=== PATIENT | male | born 1955 | race Caucasian/White ===

== ENCOUNTER 2020-07-02 10:34 | Outpatient (CLI) | payer OTHER, SELFPAY | END 2020-07-02 10:35 | disposition home or self-care (01) | LOC: ANHCOVIDVC 10:34 | PROVIDERS: PCP Family Medicine | DX: Z23 Encounter for immunization (principal) | CPT/HCPCS: 0001A; 91300 ==

== ENCOUNTER 2020-07-23 10:40 | Outpatient (CLI) | payer OTHER, SELFPAY | END 2020-07-23 10:41 | disposition home or self-care (01) | LOC: ANHCOVIDVC 10:40 | PROVIDERS: PCP Family Medicine | DX: Z23 Encounter for immunization (principal) | CPT/HCPCS: 0002A; 91300 ==

== ENCOUNTER 2024-07-11 02:12 | Day surgery (SDC) | payer MEDICARE, OTHER, SELFPAY ==
[2024-06-30 09:35] VITALS: BMI 27.9
--- OUTSIDE RECORDS SUMMARY | 2024-07-11 02:15 | XMS_ITS | Clinical Summary ---
Author Organization [facility] Address [address] [place] [address] Care Team Providers Care Nurse Wound Care Name Role Phone Unavailable Primary Care Provider Unavailabl e Source Comments [facility],non-owned Affiliates and Associated Physician Practices is amultiple site organization consisting of ambulatory clinics and hospital sitesin [place], [place], [place] and [place]. This disclosure is being madepursuant to the Care Everywhere program and may not contain all information available regarding this patient. Last updated 17.[facility] Allergies No known active allergies Medications * Be aware that medications may not be up to date on this document. Alwaysverify current medications with the patient. 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 [employer] Gender Identity Not on file Sexual Orientation Not on file Plan of Treatment Health Maintenance Due Date Last Done Comments COLOGUARD (AGES 45-75) - COL ON CA SCREENING 1957 COLON MONITORING 1957 COLONOSCOPY - COLON CA SCREENING 1957 CT COLONOGRAPHY - COLON CA SCREENING 1957 Colorectal Cancer Screening 1957 FIT - COLON CA SCREENING 1957 FLEX SIG - COLON CA SCREENING 1957 HEPATITIS C SCREENING 12/30/1974 DTAP/TDAP/TD VACCINES (1 - Tdap) 01/04/1976 PNEUMOCOCCAL VACCINE 50+ (1 of 1 - PCV) 2007 ZOSTER VACCINE (1 of 2) 2007 COVID-19 VACCINE (1 - 2023-2 5 season) 2023 DEPRESSION SCREENING 03/22/2024 INFLUENZA VACCINE (Season Ended) 2024 Respiratory Syncytial Virus (RSV) Vaccine Pt: or over 60 yrs (1 - 1-dose 75+ series) 01/04/2032 HEPATITIS B VACCINE Aged Out No longe r eligible based on patient's age to complete this topic HIB VACCINE Aged Out No longer eligi ble based on patient's age to complete this topic HPV VACCINE Aged Out No longer eligi ble based on patient's age to complete this topic MENINGOCOCCAL (Group B) VACC INE SHARED DECISION-MAKING Aged Out No longer eligibl e based on patient's age to complete this topic MENINGOCOCCAL GROUPS A/C/Y/W VACCINE Aged Out No longer eligible b ased on patient's age to complete this topic Insurance [facility]
--- OUTSIDE RECORDS SUMMARY | 2024-07-11 02:15 | XMS_ITS | Clinical Summary ---
Author Organization [facility] Address [facility] access [facility] [place] [address] Care Team Providers Care Tire Center Manager Name Role Phone Sheldon Raines MD Primary Care Provider Allergies No known active allergies Medications simvastatin 40 MG tablet Take 40 mg by mouth nightly at bedtime. Active glucosamine-chondro itin 500-400 MG Cap Take 1 capsule by mouth 2 (two) times a day. Active fish oil 1000 MG Cap capsule Take 1,000 mg by mouth 2 (two) times daily. Active multi vitamin/minerals tablet Take 1 tablet by mouth daily. Active ondansetron (ZOFRAN ODT) 4 MG disintegrating tablet Take 1 tablet (4 mg total) by mouth every 8 (eight) hours as needed for Nausea. 20 tablet 9 Active Active Problems Problem Noted Date Diagnosed Date Vertigo 11/17/2018 Family History Medical History Relation Comments Diabetes Father Relation Status Comments Father Social History Tobacco Use Types Packs/Day Years Used Date Smoking Tobacco: Never Smokeless Tobacco: Never Alcohol Use Standard Drinks/Week Comments No 0 (1 standard drink = 0.6 oz pur e alcohol) AUDIT-C Answer Date Recorded Frequency of Alcohol Consumption Never 11/17/2018 Average Number of Drinks Not on file 019 Frequency of Binge Drinking Not on file 10/21 Sex and Gender Information Value Date Recorded Sex Assigned at Male 11/18/2018 1:11 AM CDT Legal Sex Male 5:43 PM CDT Gender Identity Male 11/18/2018 1:11 AM CDT Sexual Orientation Straight 11/18/2018 1: 11 AM CDT Last Filed Vital Signs Vital Sign Reading Time Taken Comments Blood Pressure 128/88 11/19/2018 11:45 AM CDT Pulse 63 11/19/2018 11:45 AM CDT Temperature 36.8 C (98.3 F) 11/19/2018 11:45 AM CDT Respiratory Rate 16 11/19/2018 11:4 5 AM CDT Oxygen Saturation 93% 11/19/2018 11: 45 AM CDT Inhaled Oxygen Concentration - - Weight 99.7 kg (219 lb 12.8 oz) 11/19/2018 4:48 AM CDT Height 180.3 cm (5' 11 ) 11/17/2018 11: 00 PM CDT Body Mass Index 30.66 11/17/2018 11:00 PM CDT Plan of Treatment Health Maintenance Due Date Last Done Comments Colorectal Cancer Screening Colonoscopy (10 Years) 1957 Hepatitis C 1975 DTaP, Tdap and Td Vaccines ( 1 - Tdap) 01/04/1976 Pneumococcal Vaccine: 50+ Ye ars (1 of 1 - PCV) 2007 Zoster Vaccines (1 of 2) 2007 COVID-19 Vaccine ( - 2023-2 5 season) 2023 RSV Immunization or 60+ Years (1 - 1-dose 75+ series) 01/04/2032 Meningococcal B Vaccine Aged Out No l onger eligible based on patient's age to complete this topic Meningococcal Vaccine Aged Out No meera bartolo eligible based on patient's age to complete this topic RSV Immunizations Under 20 Months Aged Out No longer eligible based on patient's age to complete this topic Insurance CIG Advance Directives * Full Code (Latest Code Status on File) Date Activated Date Inactivated Comments 11/17/2018 10:21 PM 11/19/2018 3:34 PM Care Teams Tire Center Manager Relationship Specialty Start Date End Date Sheldon Raines MD [address] [place] [address] PCP - General FAMILY PRACTICE 11/17/18
--- OUTSIDE RECORDS SUMMARY | 2024-07-11 02:15 | XMS_ITS | Encounter Summary ---
Author Organization [facility] Address Formerly [facility], [facility] [place] [address] Care Team Providers Care Orthopedic Cast Specialist Name Role Phone Sheldon Raines MD Primary Care Provider [phone] Encounter Details Date Type Department Care Team (Late st Contact Info) Description 11/20/2018 Hospital Follow-up Call [facility] Med/Surg [address] [place] [address] Yancy Brown RN Social History Tobacco Use Types Packs/Day Years [...] Orientation Straight 11/18/2018 1: 11 AM CDT documented as of this encounter Functional Status * RETIRED Are you deaf or do you have serious difficulty hearing Answer Date of Assessment Author Status No 11/18/2018 1:16 AM CDT Activ e * RETIRED Are you blind or do you have serious difficulty seeing, even when wearing glasses? Answer Date of Assessment Author Status No 11/18/2018 1:16 AM CDT Activ e * Do you have serious difficulty walking or climbing stairs? Answer Date of Assessment Author Status No 11/18/2018 1:16 AM CDT Sarita Atkins R N Active * Do you have difficulty dressing or bathing? Answer Date of Assessment Author Status No 11/18/2018 1:16 AM CDT Sarita Atkins R N Active * Because of a physical, mental, or emotional condition, do you have difficulty doing errands alone such as visiting a doctor's office or shopping? Answer Date of Assessment Author Status No 11/18/2018 1:16 AM CDT Sarita Atkins R N Active documented as of this encounter Mental Status * Because of a physical, mental, or emotional condition, do you have serious difficulty concentrating, remembering, or making decisions? Answer Entry Date Author Status No 11/18/2018 1:16 AM CDT Sarita Atkins R N Active documented in this encounter Plan of Treatment Not on file documented as of this encounter Visit Diagnoses Not on filedocumented in this encounter Care Teams Orthopedic Cast Specialist Relationship Specialty Start Date End Date Sheldon Raines MD [address] [place] [address] PCP - General FAMILY PRACTICE 11/17/18 documented as of this encounter
--- OUTSIDE RECORDS SUMMARY | 2024-07-11 02:15 | XMS_ITS | Encounter Summary ---
Author Organization [facility] Address [address] [place] [address] Care Team Providers Care Pen Tester Name Role Phone Unavailable Primary Care Provider Unavailabl e Encounter Details Date Type Department Care Team (Late st Contact Info) Description 05/23/2020 Lab Requisition [facility] Care DermPath Lab 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 Gender Identity Not on file Sexual Orientation Not on file documented as of this encounter Plan of Treatment Not on file documented as of this encounter Procedures Procedure Name Priority Date/Time Associated Diagnosis Comments DERMATOPATHOLOGY Routine 05/21/2020 3:33 AM FEEDER ASSOCIATE documented in this encounter Results * DERMATOPATHOLOGY (05/21/2020 3:33 AM FEEDER ASSOCIATE) Case Report Dermatopathology Report Case: [id number] Authorizing Provider: Mikael Kaiser MD Collected: 05/21/2020 03:33 AM Ordering Location: [facility] Care DermPath Lab Received: 05/23/2020 07:01 AM Pathologist: Alina Toney MD Specimen: Skin, left glabella 5:41 PM FEEDER ASSOCIATE DERMATOPATHOLOGY LABORATORY Final Diagnosis Specimen A. SKIN, left glabella: LENTIGINOUS MELANOCYTIC PROLIFERATION; APPROXIMATES MARGIN (D48.5) (see microscopic description and comment) 5:[address] [facility] DERMATOPATHOLOGY LABORATORY Clinical History R/O dys nevus. 5:[address] [facility] DERMATOPATHOLOGY LABORATORY Gross Description Specimen A: Received is one formalin filled container labeled with the patient's name and designated left glabella. The specimen consists of a shave biopsy (2 pieces) measuring 8w7d3ir & 9v1l4bw. Jar 0. 5:[address] [facility] DERMATOPATHOLOGY LABORATORY Microscopic Description Specimen A. SKIN, left glabella: There is increased pigmentation along the basal layer of the epidermis. A mildly increased number of melanocytes is seen along the basal layer with focal areas of confluence. The melanocytes are highlighted by MART-1/Melan-A. The lesion approximates the margin of the specimen. COMMENT: Although the areas of focal confluence of melanocytes is somewhat concerning, the overall histologic features are favored to represent an irritated lentigo. Cinicopathologic correlation is recommended as to complete removal. This case was also reviewed by Dr. Sujatha Solis, who agrees. 5:[address] [facility] DERMATOPATHOLOGY LABORATORY Disclaimer An external and internal positive and negative controls are appropriate for the histochemical, immunohistochemical and immunofluorescence stain(s) in this case (if any), except where stated explicitly. The performance characteristics of the stain(s) cited in this report were developed and its performance characteristic determined by the Dermatopathology Laboratory at [facility], directed by Dr. Rudy Solis. These tests need not be, and therefore are not, approved by the [place] Food and Drug Administration. The tests are used for clinical purposes. Billing Codes Specimen Charges Stain Charges 23591 1 [id number] 1 5:[address] [facility] DERMATOPATHOLOGY LABORATORY Embedded Images 5:[address] [facility] DERMATOPATHOLOGY LABORATORY Pathology/Cytolo gy TISSUE SPECIMEN FROM SKIN / Unknown 05/21/2020 3:33 AM FEEDER ASSOCIATE 05/23/2020 7:01 AM FEEDER ASSOCIATE us Mikael Kaiser MD LAB - PATHOLOGY/CYTOLOGY ORD ERABLES Final Result DERMATOPATHOLOGY LABORATORY [facility] - Department of Dermatology [facility], [address]rd Floor [address] [phone] documented in this encounter Visit Diagnoses Not on filedocumented in this encounter
--- OUTSIDE RECORDS SUMMARY | 2024-07-11 02:15 | XMS_ITS | Encounter Summary ---
Author Organization [facility] Address [address] [place] [address] Care Team Providers Care Laborer Prestressed Concrete Name Role Phone Sheldon Raines MD Primary Care Provider [phone] Reason for Visit * Reason Onset Date Comments Follow Up Call 11/22/2018 Encounter Details Date Type Department Care Team (Late st Contact Info) Description 11/22/2018 Telephone [facility] Med/Surg [address] [place] [address] Goldie Nguyễn CNA Follow Up Call Social History Tobacco Use Types Packs/Day Years [...] R N Active documented in this encounter Progress Notes * Goldie Nguyễn CNA - 11/22/2018 9:21 AM CDT Called patient to inform him of a follow up appointment with Dr. Agustin's SALVAGE DIVER. He said that he wouldn't be able to make the appointment I had scheduled so he would just call back and make it himself. documented in this encounter Plan of Treatment Not on file documented as of this encounter Visit Diagnoses Not on filedocumented in this encounter Care Teams Laborer Prestressed Concrete Relationship Specialty Start Date End Date Sheldon Raines MD [address] [place] [address] PCP - General FAMILY PRACTICE 11/17/18 documented as of this encounter
[2024-07-11 11:19] VITALS: BP 148/97; PULSE 62; RESP 18; TEMP 36.8; O2SAT 100
--- NOTE | 2024-07-11 11:40 | WPDANESEPPF ---
Anes - Initial Pre Proc Eval Procedure: Operation Date: 07/11/24 12:30 Proposed Procedures p Screening Colonoscopy - Greyson Mantilla MD Date/Time: 07/11/24 11:40 Surgeon: Greyson Mantilla MD Pre Op Diagnosis: screening colon Patient Data Age: 69 Gender: M Height: 1.8 m Weight: 91.2 kg Last Vital Signs Temp 36.8 C 07/11/24 11:19 Pulse 62 07/11/24 11:19 Resp 18 07/11/24 11:19 BP 148/97 H 07/11/24 11:19 Pulse Ox 100 07/11/24 11:19 O2 Del Method Room Air 07/11/24 11:19 Allergies Allergy/AdvReac Type Severity Reaction Status Date / Time No Known Allergies Allergy Verified 06/30/24 09:29 Home Medications ?Medication ?Instructions ?Recorded ?Confirmed ?Type simvastatin 40 mg tablet 40 mg PO DAILY #90 tabs 02/29/24 07/11/24 Rx [id number] 1 tablet PO DAILY 06/30/24 07/11/24 History glucosamine-chondroitin 750 mg-600 2 tablet PO DAILY 06/30/24 07/11/24 History mg tablet omega-3 fatty acids-fish oil 360 1 cap PO DAILY 06/30/24 07/11/24 History mg-1,200 mg capsule Patient hx anesthesia problems: none Family hx anesthesia problems: none Results Review: All pre-operative results and documents have been reviewed as part of the pre-operative evaluation. COUNT INCLUDES THE [facility] Past Medical History Medical History Umbilical hernia BMI 29.0-29.9,adult Mixed hyperlipidemia Male erectile dysfunction, unspecified Hypokalemia Encounter for screening for malignant neoplasm of colon Dizziness Dietary counseling and surveillance (11/28/18) BMI 28.0-28.9,adult Family History Family History Sibling Hypertension Family history of malignant neoplasm of breast in first degree relative Family history of diabetes mellitus in first degree relative Glaucoma Father Family history of diabetes mellitus in first degree relative Diabetes mellitus Grandparent Diabetes mellitus Mother Other Family history of arthritis Family history of heart disease in male family member before age 55 Family history of malignant neoplasm Family history of seizure disorder Social History Social History Smoking status: Never smoker Second hand tobacco smoke exposure: Yes Alcohol intake: current Drinks per week: 1 Substance use: never Substance use type: does not use Do You Feel Safe in your Home?: Yes Lack of Transportation: No Lack of Food: Never True Current Housing: I Have Housing Concerned About Future Housing: No Difficulty Paying Gas/Electric Bills: No Difficulty Paying for Meds: No Currently Unemployed: No Education: Bachelor's Degree Difficulty w/ Childcare or Family Care: No Living arrangements: with family Occupation/Education: retired Additional occupation/education comments: [employer] Gender identity (if verbalized by the patient): Male Spiritual care concerns: No Anes - Eval Final PreProcedure Day of Procedure 07/11/24 11:40 Patient weight: overweight Heart: regular rate and rhythm Lungs: clear to auscultation Airway: Mallampati scale class II Neurological: alert and oriented Last oral intake: >/= 8 hours ASA classification: II Emergent: no Anesthetic plan: proceed Anesthesia type and monitoring: general GIVS and standard monitoring Results Review: All pre-operative results and documents have been reviewed as part of the pre-operative evaluation. Informed Consent: The patient's anesthetic plan and its attendant risks and benefits were discussed with the patient/family/POA. Questions were solicited and answers provided to the satisfaction of the patient/family/POA.
[2024-07-11] MEDS: LACTATED RINGERS 1,000 ML 150 ML IV CONT (11:42)
--- NOTE | 2024-07-11 13:11 | P.HP_ITS ---
H&P: HPI History of Present Illness Date/Time: 07/11/24 13:11 Chief Complaint: Screening colonoscopy Narrative: This is the patient's 3rd colonoscopy. There are no GI symptoms and there is no family history of colorectal cancer. Review of Systems Review of Systems: All systems reviewed & are unremarkable except as noted in HPI and below PMFSH Past Medical History Medical History Umbilical hernia BMI 29.0-29.9,adult Mixed hyperlipidemia Male erectile dysfunction, unspecified Hypokalemia Encounter for screening for malignant neoplasm of colon Dizziness Dietary counseling and surveillance (11/28/18) BMI 28.0-28.9,adult Family History Family History Sibling Hypertension Family history of malignant neoplasm of breast in first degree relative Family history of diabetes mellitus in first degree relative Glaucoma Father Family history of diabetes mellitus in first degree relative Diabetes mellitus Grandparent Diabetes mellitus Mother Other Family history of arthritis Family history of heart disease in male family member before age 55 Family history of malignant neoplasm Family history of seizure disorder Social History Social History Smoking status: Never smoker Second hand tobacco smoke exposure: Yes Alcohol intake: current Drinks per week: 1 Substance use: never Substance use type: does not use Do You Feel Safe in your Home?: Yes Lack of Transportation: No Lack of Food: Never True Current Housing: I Have Housing Concerned About Future Housing: No Difficulty Paying Gas/Electric Bills: No Difficulty Paying for Meds: No Currently Unemployed: No Education: Bachelor's Degree Difficulty w/ Childcare or Family Care: No Living arrangements: with family Occupation/Education: retired Additional occupation/education comments: [employer] Gender identity (if verbalized by the patient): Male Spiritual care concerns: No Meds Home Medications and Allergies Home Medications ?Medication ?Instructions ?Recorded ?Confirmed ?Type simvastatin 40 mg tablet 40 mg PO DAILY #90 tabs 02/29/24 07/11/24 Rx [id number] 1 tablet PO DAILY 06/30/24 07/11/24 History glucosamine-chondroitin 750 mg-600 2 tablet PO DAILY 06/30/24 07/11/24 History mg tablet omega-3 fatty acids-fish oil 360 1 cap PO DAILY 06/30/24 07/11/24 History mg-1,200 mg capsule Allergies Allergy/AdvReac Type Severity Reaction Status Date / Time No Known Allergies Allergy Verified 06/30/24 09:29 Vital Signs Vital Signs - 24 hr 07/11/24 11:19 Temperature 98.2 F Pulse Rate 62 Respiratory Rate 18 Blood Pressure 148/97 H Pulse Oximetry 100 Oxygen Delivery Room Air Exam Const: General: cooperative and healthy appearing Resp: Effort & Inspection: normal respiratory effort and able to speak in co mplete sentences Auscultation: clear to auscultation bilaterally Cardio: Rate: regular rate Rhythm: regular rhythm GI: Inspection: normal to inspection GI Palp: No No hepatosplenomegaly present Auscultation: normal bowel sounds Rectal Exam: deferred Skin: General skin exam: normal color Psych: Appearance: grossly normal Mental Status: mental status grossly normal Assessment and Plan Assessment and plan (1) Encounter for screening for malignant neoplasm of colon: Code(s): Z12.11 - Encounter for screening for malignant neoplasm of colon Status: Acute Assessment and Plan: The patient is deemed a good candidate for the procedure. Consent signed. Will proceed.
[2024-07-11 13:33] VITALS: BP 110/76; PULSE 58; RESP 16; O2SAT 97
[2024-07-11 13:43] VITALS: BP 115/78; PULSE 56; RESP 22; O2SAT 97
[2024-07-11 13:53] VITALS: BP 119/88; PULSE 55; RESP 17; O2SAT 97
== END 2024-07-11 14:15 | disposition home or self-care (01) ==
PROVIDERS: PCP Family Medicine; Referring Provider Nurse Practitioner Family; Visit Provider Internal Medicine Gastroenterology
PROC: 0DJD8ZZ Inspection of Lower Intestinal Tract, Via Natural or Artificial Opening Endoscopic (ICD-10-PCS; CPT 45378; principal; 2024-07-11 12:30)
DX: Z12.11 Encounter for screening for malignant neoplasm of colon (principal); K63.5 Polyp of colon; K64.8 Other hemorrhoids
CPT/HCPCS: 45385; 88305; J2003; J2704; J7120